=== PATIENT | male | born 1985 | race African-American/Black ===

== ENCOUNTER 2016-12-22 18:46 | Emergency (ER) | payer MEDICAID ==
[~2016-12-22] VITALS: Ht 193 cm; Wt 89.0 kg
[2016-12-22 19:46] VITALS: BP 109/73
== END 2016-12-22 23:50 | disposition left against medical advice (07) ==
LOC: ER 18:46
DX: Z53.21 Procedure and treatment not carried out due to patient leaving prior to being seen by health care provider (principal)